=== PATIENT | female | born 1995 | race Caucasian/White ===

== ENCOUNTER 2021-06-07 23:22 | Emergency (ER) | payer SELFPAY ==
[~2021-06-07] VITALS: Ht 160 cm; Wt 74.4 kg
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
--- NOTE | 2021-06-08 00:40 | NUR ---
waiver signed, xray called
--- NOTE | 2021-06-08 00:48 | NUR ---
BROUGHT TO CT
[2021-06-08 01:21] LABS: BILIRUBIN,URINE Negative (NEGATIVE); COLOR,URINE YELLOW (YELLOW); LEUKOCYTE ESTERASE ,URINE Small (NEGATIVE); NITRITE, URINE Negative (NEGATIVE); PROTEIN,URINE Negative (NEGATIVE); UGLUCOSE Negative (NEGATIVE); UROBILINOGEN,URINE 0.2 EU/dL (0.2)
--- NOTE | 2021-06-08 01:50 | NUR ---
Patient discharged to home in stable condition. Written and verbal after care instructions given. Patient verbalizes understanding of instruction. PT ambulatory with a steady gait
[2021-06-08 01:55] LABS: RBC,URINE 21-50 /HPF (0-2); WBC,URINE 21-50 /HPF (0-3)
[2021-06-08 01:56] LABS: BACTERIA,URINE Rare /HPF (None Seen); SQUAMOUS EPITHELIAL CELL,UR Rare /HPF (None Seen)
--- NOTE | 2021-06-08 02:04 | NUR ---
[facility] in [facility] - 06/08/21 at 0213 by MICHAELLE CALLED [facility] AND SPOKE TO RETAIL LINK ANALYST [id number]. SHE WILL CALL BACK WHEN SHE FINDS ANY INFORMATION REGARDING THE PT
--- NOTE | 2021-06-08 02:04 | NUR ---
CALLED [facility] AND SPOKE TO TEAM MANAGER [id number]. SHE WILL CALL BACK WHEN SHE FINDS ANY INFORMATION REGARDING THE PT
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
--- NOTE | 2021-06-08 04:05 | NUR ---
[facility] ARRIVED TO TAKE PT TO [facility]
[2021-06-08 04:07] VITALS: BP 135/66
== END 2021-06-08 04:09 | disposition home or self-care (01) ==
LOC: ER 23:22
DX: R10.30 Lower abdominal pain, unspecified (principal); R19.00 Intra-abdominal and pelvic swelling, mass and lump, unspecified site
CPT/HCPCS: 81001; 84703-TC; 87086-TC